=== PATIENT | male | born 1940 | race Caucasian/White ===

== ENCOUNTER 2017-06-21 08:33 | Emergency (ER) | payer MEDICARE, BC, OTHER ==
[~2017-06-21] VITALS: Ht 175.3 cm; Wt 82.7 kg
[2017-06-21] MEDS ORDERED: HYDR12CA PO (09:09)
[2017-06-21] MEDS ORDERED: BENI1TAB PO (09:09)
[2017-06-21] MEDS ORDERED: ASPI1TAB PO (09:09)
[2017-06-21] MEDS ORDERED: NS 1,000 ML IV SCH (09:34)
[2017-06-21] MEDS ORDERED: NS 500 ML IV ONE ×3 (09:45→12:00)
--- NOTE | 2017-06-21 09:58 | REP ---
CT Head without contrast HISTORY: Weakness COMPARISON: None Areas of decreased attenuation are present in the periventricular white matter. This represents small-vessel ischemic disease. There is no intraparenchymal hemorrhage, acute infarct, mass or midline shift. The ventricular system and cortical sulci are dilated consistent with minimal volume loss. There is no extra cerebral collection. There is no fracture. The visualized sinuses are clear. IMPRESSION: 1. Small vessel ischemic disease. 2. Minimal volume loss. Signed by Oz Pratt MD 06/21/2017 09:50 A
--- NOTE | 2017-06-21 10:04 | REP ---
Chest two views HISTORY: Cough Comparison: 02/20/2013 Linear density is present in the right lower lobe consistent with scar. The left lung is clear. The heart is normal in size. The pulmonary vasculature is normal in appearance. The bony structure is intact. IMPRESSION: No acute disease. Signed by Oz Pratt MD 06/21/2017 09:56 A
[2017-06-21 10:42] LABS: MEAN CORPUSCULAR HEMOGLOBIN 29.5 pg (27.0-33.0); MEAN CORPUSCULAR HGB CONC 33.3 g/dl (32.0-36.5); MEAN CORPUSCULAR VOLUME 88.6 fl (80.0-96.0); PLATELET COUNT, AUTOMATED 180 10^3/uL (150-450); RED CELL DISTRIBUTION WIDTH 12.2 % (11.5-14.5); VENOUS BASE EXCESS -0.2 (-2.0-2.0); VENOUS PARTIAL PRESSURE CO2 47.1 mmHg (38.0-50.0); VENOUS PARTIAL PRESSURE O2 24.2 mmHg (30.0-50.0); VENOUS TOTAL CO2 27.3 MEQ/L (24.0-28.0); WHITE BLOOD COUNT 16.6 10^3/uL (4.0-10.0)
[2017-06-21 10:43] LABS: VENOUS O2 SATURATION 46.6 % (60.0-80.0)
[2017-06-21 10:51] LABS: ADD MANUAL DIFFER YES; DIFF SLIDE NUMBER 165
[2017-06-21 11:03] LABS: BANDS 2 % (< 11); BASOPHILS 1 % (0-4)
[2017-06-21 11:04] LABS: POIKILOCYTOSIS 1+
[2017-06-21 11:10] LABS: ALBUMIN 3.8 GM/DL (3.2-5.2); ALBUMIN/GLOBULIN RATIO 1.06 (1.00-1.93); ALKALINE PHOSPHATASE 65 U/L (45-117); ALT/SGPT 18 U/L (12-78); ANION GAP 6 MEQ/L (8-16); AST/SGOT 10 U/L (15-37); BILIRUBIN,DIRECT 0.3 MG/DL (0.0-0.2); BILIRUBIN,TOTAL 1.2 MG/DL (0.2-1.0); BLOOD UREA NITROGEN 26 MG/DL (7-18); CALCIUM LEVEL 8.6 MG/DL (8.8-10.2); CARBON DIOXIDE LEVEL 30 MEQ/L (21-32); CHLORIDE LEVEL 100 MEQ/L (98-107); CREATININE FOR GFR 1.66 MG/DL (0.70-1.30); GLOMERULAR FILTRATION RATE 43.2 (>42); GLUCOSE, FASTING 100 MG/DL (83-110); POTASSIUM SERUM 3.9 MEQ/L (3.5-5.1); SODIUM LEVEL 136 MEQ/L (136-145); TOTAL PROTEIN 7.4 GM/DL (6.4-8.2)
[2017-06-21 11:23] LABS: OSMOLALITY SERUM 293 MOSM/KG (280-301)
[2017-06-21 11:24] LABS: ERYTHROCYTE SEDIMENTATION RATE 26 mm/hr (0-20)
[2017-06-21] MEDS ORDERED: cefTRIAXone SOD 1 GM in D5W 50 ML IV ONE (12:30)
--- NOTE | 2017-06-21 14:06 | REP ---
CT ABDOMEN PELVIS WITHOUT IV OR ORAL CONTRAST: Renal stone protocol. HISTORY: UTI. Pain. No comparison CT study. CT FINDINGS: Preliminary digital associate teacher radiograph is unremarkable. The lung bases show linear discoid atelectasis in the lower lobes bilaterally and in the lingular segment of the left upper lobe and right middle lobe. This is moderate. No pleural effusion is seen. The liver and spleen are normal in size and homogeneous in texture. There is an accessory splenule. No gallbladder abnormality is seen. No pancreatic abnormality is observed. Normal adrenal glands are seen bilaterally. Normal caliber aorta is noted. No intrarenal calculus mass or cyst is seen. No hydronephrosis is seen on either side. The prostate gland is somewhat enlarged and contains one or two dystrophic calcifications. Urinary bladder is intact. Small and large intestinal bowel loops are unremarkable. Normal appendix is seen. No abdominal wall defect is observed. No bony destructive lesion is seen. IMPRESSION: Somewhat enlarged prostate. No other significant abdominal or pelvic abnormality. Bibasilar pulmonary parenchymal discoid atelectasis. Signed by Fernandez Gallagher MD 06/21/2017 03:15 P
[2017-06-21] MEDS ORDERED: CIPR-249 PO ×2 (14:25→14:26)
[2017-06-21 14:29] VITALS: BP 126/60
[2017-06-22] MEDS ORDERED: CIPR250T3 PO (16:54)
--- NOTE | 2017-06-24 05:59 | ECGEPIP ---
Stationary ECG Study [facility] - ED Test Date: 2017-06-21 Pat Name: DAYNE JACKSON Department: Room: - Gender: M Pediatric Hospitalist: galo : 1940 Requested By: Hilda Mccartney Order Number: [id number] Reading MD: Jean-Pierre Latham Measurements Intervals [place] Rate: 75 P: 27 MA: 163 QRS: -36 QRSD: 141 T: 79 QT: 387 QTc: 433 Interpretive Statements SINUS RHYTHM LEFT AXIS DEVIATION LEFT BUNDLE BRANCH BLOCK SIMILAR TO 07/10/13 Electronically Signed On 06-24-2017 5:59:32 EDT by Jean-Pierre Latham
[2017-06-24] MEDS ORDERED: CIPR500T3 PO (13:08)
[2017-06-24] MEDS ORDERED: FLOM5CAP PO (13:09)
== END 2017-06-21 14:46 | disposition home or self-care (01) ==
LOC: M ED 08:33
DX: N39.0 Urinary tract infection, site not specified (principal); I10 Essential (primary) hypertension; Z88.1 Allergy status to other antibiotic agents; Z87.891 Personal history of nicotine dependence; Z79.82 Long term (current) use of aspirin; Z79.899 Other long term (current) drug therapy
CPT/HCPCS: 70450; 71020; 74176; 80048; 80076; 81001; 82140; 82550; 82553; 82803; 83605; 83930; 84443; 84484; 85025; 85652; 87040; 87086; 93005; 93041; 96374; 99285; J0696

== ENCOUNTER → 2017-07-12 | Outpatient (REF) | payer MEDICARE, OTHER ==
[~2017-07-12] MED LIST: ASPI1TAB PO; BENI1TAB PO; CIPR-249 PO; CIPR250T3 PO; CIPR500T3 PO; FLOM5CAP PO; HYDR12CA PO
== END ==
LOC: M SMT 12:56
PROVIDERS: ATTEND Nurse Practitioner Family
DX: R31.29 Other microscopic hematuria (principal); N41.9 Inflammatory disease of prostate, unspecified
CPT/HCPCS: 51798; 81001; 87086; G0463

== ENCOUNTER → 2017-07-24 | Outpatient (REF) | payer MEDICARE, OTHER ==
[2017-07-24 14:22] LABS: CALCIUM LEVEL 8.7 MG/DL (8.8-10.2); CREATININE FOR GFR 1.54 MG/DL (0.70-1.30); GLOMERULAR FILTRATION RATE 47.1 (>42); POTASSIUM SERUM 4.4 MEQ/L (3.5-5.1)
== END ==
LOC: M LAB REF 13:34 → M LABDRAW1 13:34
PROVIDERS: ATTEND Family Medicine
DX: I10 Essential (primary) hypertension (principal)

== ENCOUNTER → 2017-09-30 | Outpatient (REF) | payer MEDICARE, OTHER ==
[2017-09-30 13:43] LABS: ANION GAP 5 MEQ/L (8-16); BLOOD UREA NITROGEN 40 MG/DL (7-18); CALCIUM LEVEL 8.5 MG/DL (8.8-10.2); CARBON DIOXIDE LEVEL 30 MEQ/L (21-32); CHLORIDE LEVEL 105 MEQ/L (98-107); GLOMERULAR FILTRATION RATE 48.6 (>42); GLUCOSE, FASTING 89 MG/DL (70-100); POTASSIUM SERUM 4.4 MEQ/L (3.5-5.1); SODIUM LEVEL 140 MEQ/L (136-145)
== END ==
LOC: M LABDRAW1 11:55
DX: I10 Essential (primary) hypertension (principal)
CPT/HCPCS: 80048

== ENCOUNTER 2018-01-04 16:32 | Emergency (ER) | payer MEDICARE, BC, OTHER ==
[2018-01-04 17:35] LABS: HEMATOCRIT 43.9 % (42.0-52.0); HEMOGLOBIN 14.5 g/dl (13.5-17.5); MEAN CORPUSCULAR HEMOGLOBIN 29.5 pg (27.0-33.0); MEAN CORPUSCULAR VOLUME 89.2 fl (80.0-96.0); PLATELET COUNT, AUTOMATED 226 10^3/uL (150-450); RED BLOOD COUNT 4.92 10^6/uL (4.30-6.10); RED CELL DISTRIBUTION WIDTH 12.5 % (11.5-14.5); WHITE BLOOD COUNT 8.3 10^3/uL (4.0-10.0)
[2018-01-04 17:49] LABS: INR 1.07
[2018-01-04 18:16] LABS: ALBUMIN 4.1 GM/DL (3.2-5.2); ALKALINE PHOSPHATASE 65 U/L (45-117); ALT/SGPT 23 U/L (12-78); AMYLASE 64 U/L (25-115); ANION GAP 4 MEQ/L (8-16); AST/SGOT 17 U/L (7-37); BILIRUBIN,DIRECT 0.1 MG/DL (0.0-0.2); BILIRUBIN,TOTAL 0.3 MG/DL (0.2-1.0); BLOOD UREA NITROGEN 37 MG/DL (7-18); CALCIUM LEVEL 8.6 MG/DL (8.8-10.2); CARBON DIOXIDE LEVEL 28 MEQ/L (21-32); CHLORIDE LEVEL 110 MEQ/L (98-107); CPK CREATINE PHOSPHOKINASE 99 U/L (39-308); CREATININE FOR GFR 1.47 MG/DL (0.70-1.30); GLOMERULAR FILTRATION RATE 49.6 (>42); GLUCOSE, FASTING 107 MG/DL (70-100); LIPASE 120 U/L (73-393); POTASSIUM SERUM 4.1 MEQ/L (3.5-5.1); SODIUM LEVEL 142 MEQ/L (136-145); TOTAL PROTEIN 8.2 GM/DL (6.4-8.2); TROPONIN I < 0.02 NG/ML (< 0.10)
[2018-01-04 18:17] LABS: CK-MB VALUE MASS 1.9 NG/ML (<3.6); MB/CK RELATIVE INDEX 1.91 (< OR =4)
[2018-01-04] MEDS ORDERED: ISOVUE-370 76% 100ML VIAL (Q9967) As Ordered (18:27)
[2018-01-04] MEDS: GABAPENTIN 300 MG CAP PO (19:59)
== END 2018-01-04 19:59 | disposition home or self-care (01) ==
LOC: M ED 16:32
DX: R07.89 Other chest pain (principal); I44.7 Left bundle-branch block, unspecified; Z88.1 Allergy status to other antibiotic agents; Z79.82 Long term (current) use of aspirin; Z79.899 Other long term (current) drug therapy; Z87.438 Personal history of other diseases of male genital organs
CPT/HCPCS: Q9967

== ENCOUNTER → 2018-07-07 | Outpatient (REF) | payer MEDICARE, OTHER ==
[2018-07-07 13:16] LABS: ANION GAP 8 MEQ/L (8-16); BLOOD UREA NITROGEN 41 MG/DL (7-18); CALCIUM LEVEL 8.7 MG/DL (8.8-10.2); CARBON DIOXIDE LEVEL 27 MEQ/L (21-32); CHLORIDE LEVEL 106 MEQ/L (98-107); CREATININE FOR GFR 1.74 MG/DL (0.70-1.30); FREE T4 0.86 NG/DL (0.76-1.46); GLOMERULAR FILTRATION RATE 40.8 (>42); GLUCOSE, FASTING 95 MG/DL (70-100); POTASSIUM SERUM 3.8 MEQ/L (3.5-5.1); SODIUM LEVEL 141 MEQ/L (136-145)
[2018-07-07 13:21] LABS: BASO # 0.1 10^3/uL (0.0-0.2); BASO % 0.7 % (0.0-1.0); EOS # 0.3 10^3/uL (0.0-0.50); EOS % 4.4 % (0.0-3.0); HEMATOCRIT 44.3 % (42.0-52.0); HEMOGLOBIN 14.6 g/dl (13.5-17.5); IMMATURE GRANULOCYTE % 0.4 % (0-3.0); LYMPH # 2.1 10^3/uL (1.5-4.5); LYMPH % 29.4 % (24.0-44.0); MEAN CORPUSCULAR HEMOGLOBIN 30.2 pg (27.0-33.0); MEAN CORPUSCULAR VOLUME 91.7 fl (80.0-96.0); MONO # 0.7 10^3/uL (0.0-0.8); MONO % 9.2 % (0.0-5.0); NEUTROPHILS # 3.9 10^3/uL (1.8-7.7); NEUTROPHILS % 55.9 % (36.0-66.0); PLATELET COUNT, AUTOMATED 171 10^3/uL (150-450); RED BLOOD COUNT 4.83 10^6/uL (4.30-6.10); RED CELL DISTRIBUTION WIDTH 12.3 % (11.5-14.5)
== END ==
LOC: M LABDRAW1 11:52
DX: N41.0 Acute prostatitis (principal); R53.83 Other fatigue
CPT/HCPCS: 84443

== ENCOUNTER → 2018-12-15 | Outpatient (REF) | payer MEDICARE, OTHER ==
[~2018-12-15] MED LIST changes: -ASPI1TAB PO; +ASPI81TA26 PO; -BENI1TAB PO; +BENI1TAB3 PO; +FLOM0.4C39 PO; -FLOM5CAP PO; +GABA-843 PO
[2018-12-15 11:11] LABS: BASO # 0.1 10^3/uL (0.0-0.2); BASO % 0.9 % (0.0-1.0); EOS # 0.3 10^3/uL (0.0-0.50); HEMATOCRIT 44.7 % (42.0-52.0); HEMOGLOBIN 14.4 g/dl (13.5-17.5); LYMPH # 1.9 10^3/uL (1.5-4.5); LYMPH % 28.7 % (24.0-44.0); MEAN CORPUSCULAR HEMOGLOBIN 29.4 pg (27.0-33.0); MEAN CORPUSCULAR HGB CONC 32.2 g/dl (32.0-36.5); MEAN CORPUSCULAR VOLUME 91.2 fl (80.0-96.0); MONO # 0.6 10^3/uL (0.0-0.8); MONO % 9.6 % (0.0-5.0); NEUTROPHILS # 3.7 10^3/uL (1.8-7.7); NEUTROPHILS % 55.3 % (36.0-66.0); PLATELET COUNT, AUTOMATED 196 10^3/uL (150-450); WHITE BLOOD COUNT 6.7 10^3/uL (4.0-10.0)
[2018-12-15 11:35] LABS: ALBUMIN 3.9 GM/DL (3.2-5.2); BILIRUBIN,TOTAL 0.6 MG/DL (0.2-1.0); CHOLESTEROL RISK RATIO 3.547 (<5); CREATININE FOR GFR 1.53 MG/DL (0.70-1.30); GLOMERULAR FILTRATION RATE 47.3 (>42); POTASSIUM SERUM 4.4 MEQ/L (3.5-5.1)
== END ==
LOC: M LABDRAW1 10:43
PROVIDERS: ATTEND Family Medicine
DX: I10 Essential (primary) hypertension (principal)

== ENCOUNTER 2019-01-17 16:17 | Emergency (ER) | payer MEDICARE, BC, OTHER ==
[~2019-01-17] VITALS: Ht 175.3 cm; Wt 86.4 kg
[2019-01-17 16:43] LABS: BASO # 0.1 10^3/uL (0.0-0.2); BASO % 0.6 % (0.0-1.0); EOS # 0.1 10^3/uL (0.0-0.50); EOS % 1.4 % (0.0-3.0); HEMATOCRIT 44.5 % (42.0-52.0); HEMOGLOBIN 14.6 g/dl (13.5-17.5); LYMPH # 1.7 10^3/uL (1.5-4.5); LYMPH % 19.6 % (24.0-44.0); MEAN CORPUSCULAR HEMOGLOBIN 29.8 pg (27.0-33.0); MEAN CORPUSCULAR HGB CONC 32.8 g/dl (32.0-36.5); MEAN CORPUSCULAR VOLUME 90.8 fl (80.0-96.0); MONO # 0.7 10^3/uL (0.0-0.8); MONO % 7.6 % (0.0-5.0); NEUTROPHILS # 6.2 10^3/uL (1.8-7.7); NEUTROPHILS % 70.5 % (36.0-66.0); PLATELET COUNT, AUTOMATED 231 10^3/uL (150-450); WHITE BLOOD COUNT 8.7 10^3/uL (4.0-10.0)
[2019-01-17] MEDS: MORPHINE 4 MG/ML 1ML VIAL/SYRINGE (J2270) IV PRN ×2 (16:53→18:02)
[2019-01-17] MEDS ORDERED: ONDANSETRON 4MG/2ML VIAL (J2405) IV ONE (17:00)
[2019-01-17 17:15] LABS: BLOOD UREA NITROGEN 42 MG/DL (7-18); CALCIUM LEVEL 8.4 MG/DL (8.8-10.2); CARBON DIOXIDE LEVEL 25 MEQ/L (21-32); CHLORIDE LEVEL 107 MEQ/L (98-107); CPK CREATINE PHOSPHOKINASE 115 U/L (39-308); CREATININE FOR GFR 1.73 MG/DL (0.70-1.30); GLUCOSE, FASTING 94 MG/DL (70-100); MB/CK RELATIVE INDEX 1.83 (< OR =4); POTASSIUM SERUM 3.9 MEQ/L (3.5-5.1); SODIUM LEVEL 141 MEQ/L (136-145); TROPONIN I < 0.02 NG/ML (< 0.10)
--- NOTE | 2019-01-17 17:22 | ECGEPIP ---
Stationary ECG Study [facility] - ED Test Date: 2019-01-17 Pat Name: DAYNE JACKSON Department: Room: - Gender: M Limb Driver: TC : 1940 Requested By: Jean-Pierre Dangelo Order Number: [id number] Reading MD: Jean-Pierre Latham Measurements Intervals [place] Rate: 80 P: 30 MN: 161 QRS: -29 QRSD: 156 T: 96 QT: 402 QTc: 466 Interpretive Statements SINUS RHYTHM LEFT BUNDLE BRANCH BLOCK SIMILAR TO 01/04/18 Electronically Signed On 01-17-2019 17:21:58 EDT by Jean-Pierre Latham
[2019-01-17] MEDS ORDERED: HYDR-3713 PO (17:54)
[2019-01-17 18:19] VITALS: BP 141/70
--- NOTE | 2019-01-18 07:59 | REP ---
RIGHT TIB-FIB SERIES: FOUR VIEWS. HISTORY: Pain and swelling. FINDINGS: Right tibia and fibula views demonstrate normal bones, joints, and soft tissues. No fracture or subluxation is seen. IMPRESSION: Negative right calf radiographs. Electronically Signed by Fernandez Gallagher MD 01/18/2019 09:19 A
--- NOTE | 2019-01-18 08:00 | REP ---
RIGHT KNEE RADIOGRAPHS: FOUR VIEWS. HISTORY: Pain and swelling after fall. FINDINGS: Four views of the right knee are presented. No sunrise view is seen. There is mild soft tissue swelling anteriorly in the prepatellar soft tissues. Minimal patellar spurring is seen. No fractures noted. IMPRESSION: No fracture noted. Electronically Signed by Fernandez Gallagher MD 01/18/2019 09:20 A
== END 2019-01-17 18:41 | disposition home or self-care (01) ==
LOC: M ED 16:17
DX: S80.11XA Contusion of right lower leg, initial encounter (principal); R55 Syncope and collapse; W01.198A Fall on same level from slipping, tripping and stumbling with subsequent striking against other object, initial encounter; Y92.89 Other specified places as the place of occurrence of the external cause; I44.7 Left bundle-branch block, unspecified; I10 Essential (primary) hypertension; Z87.891 Personal history of nicotine dependence; Z88.1 Allergy status to other antibiotic agents; Z79.899 Other long term (current) drug therapy; Z79.82 Long term (current) use of aspirin
CPT/HCPCS: 73564; 73590; 80048; 82550; 82553; 84443; 84484; 85025; 93005; 93041; 94760; 96374; 96375; 96376; 99285; J2270; J2405

== ENCOUNTER 2019-07-21 16:33 | Inpatient (IN) | payer MEDICARE, BC, OTHER ==
[~2019-07-21] VITALS: Ht 175.3 cm; Wt 88.8 kg
[~2019-07-21 16:33] MED LIST changes: +HYDR-3713 PO
[2019-07-21 17:00] LABS: BASO # 0.1 10^3/uL (0.0-0.2); BASO % 0.9 % (0.0-1.0); EOS # 0.3 10^3/uL (0.0-0.5); EOS % 3.3 % (0.0-3.0); HEMATOCRIT 45.1 % (42.0-52.0); HEMOGLOBIN 14.3 g/dl (13.5-17.5); LYMPH # 2.4 10^3/uL (1.5-5.0); LYMPH % 29.6 % (24.0-44.0); MEAN CORPUSCULAR HEMOGLOBIN 29.5 pg (27.0-33.0); MEAN CORPUSCULAR HGB CONC 31.7 g/dl (32.0-36.5); MEAN CORPUSCULAR VOLUME 93.2 fl (80.0-96.0); MONO # 0.8 10^3/uL (0.0-0.8); MONO % 9.5 % (0.0-5.0); NEUTROPHILS # 4.6 10^3/uL (1.5-8.5); NEUTROPHILS % 56.2 % (36.0-66.0); PLATELET COUNT, AUTOMATED 205 10^3/uL (150-450); RED BLOOD COUNT 4.84 10^6/uL (4.30-6.10); WHITE BLOOD COUNT 8.1 10^3/uL (4.0-10.0)
[2019-07-21] MEDS ORDERED: NS 500 ML IV ONE (17:00)
[2019-07-21] MEDS ORDERED: LOSA50TA88 PO (17:07)
[2019-07-21 17:12] LABS: INR 1.16; PROTHROMBIN TIME 14.5 SECONDS (11.8-14.0)
[2019-07-21 17:13] LABS: PARTIAL THROMBOPLASTIN TIME 33.2 SECONDS (25.0-38.4)
[2019-07-21 17:38] LABS: ALBUMIN 3.7 GM/DL (3.2-5.2); ALT/SGPT 24 U/L (12-78); BILIRUBIN,DIRECT < 0.1 MG/DL (0.0-0.2); BILIRUBIN,TOTAL 0.3 MG/DL (0.2-1.0); BLOOD UREA NITROGEN 40 MG/DL (7-18); CALCIUM LEVEL 8.8 MG/DL (8.8-10.2); CARBON DIOXIDE LEVEL 27 MEQ/L (21-32); CHLORIDE LEVEL 112 MEQ/L (98-107); CK-MB VALUE MASS 2.1 NG/ML (<3.6); CPK CREATINE PHOSPHOKINASE 94 U/L (39-308); CREATININE FOR GFR 1.63 MG/DL (0.70-1.30); FREE T4 0.88 NG/DL (0.76-1.46); GLOMERULAR FILTRATION RATE 43.9 (>42); GLUCOSE, FASTING 99 MG/DL (70-100); LIPASE 92 U/L (73-393); MB/CK RELATIVE INDEX 2.23 (< OR =4); NT-PRO BNP 308 PG/ML (<450); POTASSIUM SERUM 5.1 MEQ/L (3.5-5.1); SODIUM LEVEL 142 MEQ/L (136-145); TOTAL PROTEIN 7.1 GM/DL (6.4-8.2); TROPONIN I < 0.02 NG/ML (< 0.10)
--- NOTE | 2019-07-21 17:40 | REP ---
Chest x-ray: Single view. History: Chest pain. Comparison chest x-ray: June 21, 2017. Findings: There is plate-like atelectasis in the right base. Lung fernandez are otherwise clear. Pleural angles are sharp. Heart is mildly prominent. Pulmonary vasculature is not increased. The thoracic aorta is somewhat tortuous. Impression: Plate-like atelectasis right base. Mild cardiomegaly. Otherwise no acute disease. Electronically Signed by Fernandez Gallagher MD 07/21/2019 05:31 P
[2019-07-21] MEDS ORDERED: NS 1,000 ML IV SCH (18:06)
--- NOTE | 2019-07-21 20:36 | HPE ---
DATE OF ADMISSION: 07/21/2019 REASON FOR ADMISSION: Complete heart block. CHIEF COMPLAINT: Passed out. HISTORY OF PRESENT ILLNESS: Mr. Shaheen Roberts is a pleasant 78-year-old man with previous documentation of left bundle branch block (ECG 01/17/2019). He has a history of recurrent syncope. He reports an episode of syncope September 2018 and January 2019. When he lost consciousness January 2019, he sustained injury to his right lower extremity, including a fracture of the right femur. Today, at 4:15 p.m., he was bending over, putting away some garbage, when he suddenly lost consciousness. He did not have any prodrome with any nausea or vomiting or palpitations. He says the loss of consciousness have all been brief, with rapid return of sensorium. He did not injure himself today. Emergency Medical Services (EMS) found him to be in complete heart block and he was in complete heart block with ventricular in the 20s in the emergency room. Out in the field, he received some atropine intravenous (IV). Since receiving atropine, he reports he has had a dry mouth. No chest pain, pressure, squeezing, heaviness, or tightness with or without exertion. No exertional dyspnea. No orthopnea or paroxysmal nocturnal dyspnea (PND). No leg or ankle swelling. No palpitations. No embolic events. No intermittent claudication. OTHER PAST MEDICAL AND SURGICAL HISTORY: Systemic hypertension. No hypercholesterolemia. No diabetes. No coronary disease. No prior myocardial infarction. No atrial fibrillation. No heart failure. Right femur fracture January 2019. Previous removal of a lipoma over the right lateral chest with subsequent development of chronic neuropathic pain. ADVERSE DRUG REACTIONS: None. MEDICATIONS PRIOR TO ADMISSION: - losartan 50 mg twice a day - hydrochlorothiazide 12.5 mg as needed for elevated blood pressure (none for the past five days) FAMILY HISTORY: Nine brothers and sisters, all . Some of his brothers and sisters have had chronic obstructive pulmonary disease (COPD), abdominal aortic aneurysm and his oldest brother had cancer. SOCIAL HISTORY: He just recently retired as a [employer]. 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 No alcohol. He quit smoking 40 years ago. No illegal drugs. . REVIEW OF SYSTEMS: Neuropathic pain, right lateral chest wall region. Other review of systems as per history of present illness (HPI) above. No anxiety, panic attacks or depression. All other 10-point review of systems is negative. PHYSICAL EXAMINATION: A pleasant man who appears his chronological age, who is not in any respiratory or psychologic distress. Height 69 inches, weight 88.8 kg, body mass index (BMI) 28.9. Pulse 22 (regular, complete heart block on bedside monitor), blood pressure 111/55, respiratory rate 20, temperature 97.2, oxygen saturation 99% on room air. He appears overweight. No conjunctival pallor, scleral icterus, or xanthomas. Multiple missing teeth. Some dental fillings present. Oral mucosa was moist and without pallor or cyanosis. Jugular venous pulsations were at 5 cm with occasional A waves. Trachea midline. No palpable thyroid. No clubbing of the nail beds, cyanosis, or splinter hemorrhages. No skin lesions, skin pallor, or icterus. Oriented to person, place, and time. Mood and affect normal. Curvature of spine normal. Gait not appropriately tested at this time as the patient is on bed rest with complete heart block with a slow heart rate and had syncope earlier today. Gross motor strength and tone normal. No abnormal muscle atrophy, fasciculations, or tremors Respiratory expansion and effort was good. No crackles or wheezes. No dullness to percussion. No palpable apex beat. No left parasternal lifts, heaves, thrills, or palpable heart sounds. First heart sound was variable in intensity. S2 was normal. No S3 or S4 or murmurs. Carotids are normal in volume and contour and without bruits. No palpable abdominal aorta. No abdominal bruits. Femoral pulse is normal. Pedal pulse is normal. No plus edema in the legs. Abdomen was, soft, nontender with normal bowel sounds. No hepatosplenomegaly or other organomegaly. Liver span 12 cm in the midclavicular line Stool for occult blood not presently indicated. Electrocardiogram 07/21/2019 at 1645 hours shows sinus tachycardia with complete heart block with right bundle branch block and secondary as well as nonspecific ST-T abnormalities. LABORATORY: Laboratory work 07/21/2019 shows: WBC 8.1, hemoglobin 14.2, hematocrit 45.1, platelets 205. PT/INR 1.16. PTT 33.2. Sodium 142, potassium 5.1, chloride 112, BUN 40, creatinine 1.63, estimated GFR 43.9, glucose 99. NT-proBNP 308. Troponin-I less than 0.02. CPK 94, CK-MB 2.1. TSH 1.650, Free T4 0.88. Albumin 3.7, total protein 7.1. I have independently visualized the patient's portable AP sitting chest x-ray acquired 07/21/2019 at 5:09 p.m. Cardiac size probably normal for portable technique. No pulmonary vascular redistribution. No interstitial or alveolar edema. Pleural angles sharp. Vasculature appears tortuous. Platelike atelectasis right base. ASSESSMENT AND PLAN: 1. Complete heart block. Patient is symptomatic with complete heart block with recurrent syncope. He has a preexisting left bundle branch block documented. Today, he has got a right bundle branch block and a complete heart block. Therefore, alternating bundle branch block. He will require a permanent dual chamber pacemaker. Implantation of dual chamber pacemaker was discussed with the patient and his . Risks of pacemaker implantation were explained to the patient including, but not all inclusive, infection (1%), pneumothorax (1%), bleeding, stroke reaction, cardiac dysrhythmias, and cardiac perforation with cardiac tamponade (3 per 1000). Patient is agreeable and signed a consent form. The patient reported eating a few nibbles of chicken at 3:30 today and ate a full lunch at 12:30 today. The plan will be to proceed to the operating room around 9:30 p.m. [facility] to undergo implantation of a permanent dual chamber pacemaker. 2. Right bundle branch block. Right bundle branch block on ECG today. Previously, he had a left bundle branch block. He has a complete heart block. As noted above, he will undergo implantation of a permanent dual chamber pacemaker. 3. Left bundle branch block. He has had a previous documentation of left bundle branch block. Today, he has got right bundle branch block with complete heart block. As mentioned above, he will undergo implantation of a permanent dual chamber pacemaker. 4. Recurrent syncope. Syncope has now been documented to be the consequence of complete heart block. As mentioned above, he will undergo implantation of a permanent dual chamber pacemaker. 5. Systemic hypertension. Blood pressure presently controlled. Once he has a pacemaker implanted, I will be in a better position to burner operator his antihypertensive medications. Until he has a permanent pacemaker, I will hold his antihypertensive medications.
[2019-07-21] MEDS ORDERED: ceFAZolin SOD 2 GM in IV 1 EA IV ONE (21:00)
[2019-07-21] MEDS ORDERED: LIDOCAINE 1% SDV INJ 30 ML VIAL As Ordered ONE (21:18)
[2019-07-21] MEDS ORDERED: MUPIROCIN 2% OINT 22 GM TUBE As Ordered ONE (21:18)
[2019-07-21] MEDS ORDERED: VANCOMYCIN HCL 500 MG/10 ML VIAL (J3370) As Ordered ONE ×2 (21:19→21:21)
[2019-07-21] MEDS ORDERED: ISOVUE-300 61% 50ML VIAL (Q9967) As Ordered ONE (21:19)
[2019-07-21] MEDS ORDERED: ACETAMINOPHEN 325 MG TAB PO PRN (21:45)
[2019-07-21] MEDS ORDERED: ceFAZolin 1GM INJ (J0690 PER 500MG) As Ordered ONE (22:26)
[2019-07-21] MEDS ORDERED: LIDOCAINE 2% INJ 100 MG/5 ML SDV (FOR ANES.) As Ordered ONE (22:49)
[2019-07-21] MEDS ORDERED: fentaNYL 100 MCG/2 ML INJECTION (J3010) As Ordered ONE (22:49)
[2019-07-21] MEDS ORDERED: ePHEDrine SULFATE 25 MG/5 ML(5MG/ML) SYRINGE As Ordered ONE (22:49)
[2019-07-21] MEDS ORDERED: PROPOFOL 200 MG/20 ML VIAL As Ordered ONE ×2 (22:49→23:25)
[2019-07-21] MEDS ORDERED: ONDANSETRON 4MG/2ML VIAL (J2405) As Ordered ONE (23:27)
[2019-07-21] MEDS ORDERED: dexameTHASONE 4 MG/ML 1ML VIAL (J1100) As Ordered ONE (23:27)
--- NOTE | 2019-07-21 23:28 | ECGEPIP ---
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
[2019-07-22] MEDS ORDERED: fentaNYL 100 MCG/2 ML INJECTION (J3010) IV PRN (00:15)
[2019-07-22] MEDS ORDERED: ONDANSETRON 4MG/2ML VIAL (J2405) IV PRN (00:15)
[2019-07-22] MEDS ORDERED: LR 1,000 ML IV SCH (00:15)
[2019-07-22 00:40] VITALS: BP 134/73
[2019-07-22] MEDS ORDERED: PREVNAR 13 VACCINE SYRINGE (CPT CODE:90670) IM SCH (02:00)
[2019-07-22 04:00] VITALS: BP 136/62
[2019-07-22 05:43] LABS: CALCIUM LEVEL 8.1 MG/DL (8.8-10.2); CREATININE FOR GFR 1.31 MG/DL (0.70-1.30); GLOMERULAR FILTRATION RATE 56.5 (>42); POTASSIUM SERUM 4.4 MEQ/L (3.5-5.1)
--- NOTE | 2019-07-22 06:21 | ECGEPIP ---
[facility] Test Date: 2019-07-22 Pat Name: DAYNE JACKSON Department: Room: [place] [address] Gender: Male Co Founder And Ceo: SANDOR : 1940 Requested By: Rj Fu Order Number: [id number] Reading MD: Dagmar Beltre Measurements Intervals [place] Rate: 69 P: 229 [place]: 197 QRS: -17 QRSD: 148 T: 71 QT: 408 QTc: 440 Interpretive Statements ELECTRONIC ATRIAL PACEMAKER NEW C/W 07/21/19 1ST DEGREE BLOCK NEW LEFT BUNDLE BRANCH BLOCK Electronically Signed on 07-22-2019 6:21:25 EST by Dagmar Beltre
--- NOTE | 2019-07-22 06:44 | RO ---
DATE OF PROCEDURE: 07/21/2019 PREOPERATIVE DIAGNOSIS: Complete heart block. POSTOPERATIVE DIAGNOSIS: Complete heart block. FINDINGS: Complete heart block. PROCEDURE PERFORMED: Implantation of a permanent dual chamber pacemaker ([employer]ab). SURGEON: Rj Fu MD POST PARTUM NURSE: None. ANESTHESIA: Lidocaine 1% local/monitored anesthetic care. ESTIMATED BLOOD LOSS: Less than 20 mL. No blood products replaced. No biopsies. No drains. No complications. PROCEDURE DESCRIPTION: The patient was prepped and draped over the left pectoral region and 3M Ioban film was applied. Lidocaine 1% was used for local anesthetic. Under fluoroscopic guidance, using the first rib as an anatomic landmark, I was successful at percutaneous vein access of the extra thoracic portion of the left subclavian vein using a micropuncture needle. This was guidewire exchanged for one of the guidewires that came with one of the 7 Indonesian sheaths. This was then guidewire exchanged for one of the guidewires from the 7 Indonesian sheath. Next, an incision approximately 2.5 to 3 inches in length was made with a Peak Plasma blade 1 cm below the skin entry site of the guidewire. The Peak Plasma blade was used to get through the fatty layer and through the fibrous Joselyn fascia. Next, the pacemaker pocket was formed in a caudal direction using blunt dissection using two fingers. Next, the guidewire was pulled through the skin into the incision site. Next, I used the micropuncture kit to obtain a separate venous access more lateral to the first guidewire at the level of the pectoral muscle using the first guidewire as a fluoroscopic marker. This was then guidewire exchanged for a guidewire that came with the other 7 Indonesian sheath. Next, I placed a 7 Indonesian sheath over the more lateral of the guidewires and this was used for vein access for the right ventricle lead. The right ventricle was placed under fluoroscopic guidance in the vicinity of the right ventricle apex where it was secured with a total of 8 turns. This position was found to be electrically and anatomically satisfactory. The sheath was then broken apart and removed and the pectoral lead was secured to the pectoral muscle using two individual sutures consisting of #0 Ethibond to secure it to the pectoral muscle. Next, another 7 Indonesian sheath was placed over the guidewire that was placed medially from before. This sheath was used for vein access for the right atrial lead. The right atrial was placed under fluoroscopic guidance into the right atrial appendage position and was secured with a total of 14 turns. This position was found to be electrically and anatomically satisfactory. The sheath was broken apart and the atrial lead was secured to the pectoral muscle using the supplied tie down sleeve using two individual sutures consisting of #0 Ethibond. Another #0 Ethibond suture was then used to serve as the tie down for the pacemaker pulse generator by securing it to the pectoral muscle. Next, the terminal pins of the ventricular and atrial leads were placed into their respective ports in the header of the pacemaker pulse generator and each one was secured by tightening the set screws with the hex screwdriver. The excess lead material was then coiled underneath the pacemaker pulse generator and placed along with the pacemaker pulse generator into the pacemaker pocket with the excess lead material below and the pacemaker pulse generator on top. The pulse generator was then secured to the pectoral muscle using the previously placed #0 Ethibond suture. The deep layer was then closed using individual sutures consisting of #2-0 Vicryl. Some additional #3-0 Vicryl sutures were used to help approximate the more superficial layer. The skin was then closed using michael. The patient tolerated the procedure well without any immediate complications. The pacemaker pulse generator implanted was a [employer] Assurity MRI, model [id number] with serial number [id number]. The right atrial lead implanted was a [employer] Tendril MRI, model [id number], 52 cm, which had serial number [id number]. Pulse analyzer data for the right atrial lead showed capture threshold of 1.8 volts and 0.4 ms with P wave amplitude of 4.5 mV and lead impedance of 510 ohms. The right ventricle lead implant was a [employer] Tendril MRI, model [id number], 52 cm, which had a serial number [id number]. Final testing in the operating room for the right ventricle lead with the pulse analyzer showed capture threshold of 0.9 volts at 0.4 ms with R wave amplitude of 7.1 mV and lead impedance of 627 ohms.
[2019-07-22 07:45] VITALS: BP 124/65
[2019-07-22] MEDS ORDERED: SLF 3 ML SYR IV PRN (07:45)
--- NOTE | 2019-07-22 08:26 | REP ---
Portable chest x-ray: Single view. History: Postop. Comparison chest x-ray: July 21, 2019 Findings: A bipolar pacing maker is seen in place in the right heart via the left side. There is no evidence of pneumothorax. Right hemidiaphragm remains somewhat elevated with plate-like atelectasis above it. There is linear discoid atelectasis in the left base on today's radiograph. There is a radiolucency over the left heart border in the region of the left atrial appendage raising question of pneumomediastinum. Heart size is unchanged. Impression: Question pneumomediastinum. Follow up chest x-ray. Discoid atelectasis in both bases. Transvenous pacemaker via the left side. No evidence of pneumothorax. Electronically Signed by Fernandez Gallagher MD 07/22/2019 08:17 A
[2019-07-22 08:30] VITALS: BP 124/65
--- NOTE | 2019-07-22 08:40 | REP ---
Chest series: Six views. History: Intraprocedural imaging, complete heart block. 5 minutes 12 seconds of fluoroscopy time is reported. Findings: A sequence of six last image hold fluoroscopically obtained spot radiographs of the chest document pacemaker lead position. Electronically Signed by Fernandez Gallagher MD 07/22/2019 12:51 P
[2019-07-22] MEDS ORDERED: LOSARTAN 50 MG TAB PO SCH (09:00)
--- NOTE | 2019-07-22 11:06 | REP ---
Chest x-ray: Two views. History: Post pacemaker. Comparison chest x-ray: July 22, 2019. Findings: A bipolar pacemaker is seen in the right heart via the left side. There is no evidence of pneumothorax or pneumomediastinum. Pleural angles are sharp. There is plate-like atelectasis in the left base. Degenerative changes are noted in the thoracic spine. The aorta somewhat tortuous. Impression: Pacemaker in place. No evidence of pneumothorax or pneumomediastinum. Electronically Signed by Fernandez Gallagher MD 07/22/2019 10:58 A
[2019-07-22 11:45] VITALS: BP 121/67
[2019-07-22] MEDS ORDERED: SLF 3 ML SYR IV SCH (14:00)
[2019-07-22] MEDS ORDERED: ACET1TAB55 PO (14:16)
[2019-07-22] MEDS ORDERED: COZA50TA PO (14:16)
[2019-07-22] MEDS ORDERED: PREVNAR 13 VACCINE SYRINGE (CPT CODE:90670) IM ONE (15:15)
--- NOTE | 2019-07-22 15:51 | DSES ---
DATE OF ADMISSION: 07/21/2019 DATE OF DISCHARGE: FINAL DIAGNOSES: 1. Complete heart block. 2. Right bundle branch block (complete), intermittent. 3. Left bundle branch block (complete), intermittent. 4. Syncope secondary to complete heart block. 5. Systemic hypertension. 6. Overweight. CLINICAL SUMMARY/COURSE IN THE HOSPITAL: Mr. Shaheen Roberts is a generally healthy 78-year-old man with systemic hypertension and previously documented left bundle branch block, who has had prior episodes of syncope. On the day of admission he had an episode of syncope and on arrival to the emergency room was found to be in complete heart block with right bundle branch block configuration with a heart rate in the 20s. The patient also has systemic hypertension and overweight status. The patient was taken to the operating room the evening of 07/21/2019 for implantation of a permanent dual chamber pacemaker ([employer]), which was performed by Dr. Fu and was uncomplicated (see separate operative report). On postoperative day 1, the patient's vital signs were stable and he had no complaints. The pacemaker incision was well approximated by michael and was without drainage and without swelling. The pacemaker was interrogated by Dr. Fu on postoperative day 1 and was found to be satisfactory. Appropriate reprogramming changes were made (separate report). Blood pressure was controlled. In the hospital, he was on losartan 50 mg twice a day. OPERATIONS: 1. Implantation of [employer] dual chamber pacemaker on 07/21/2019. With regards to overweight status, he was placed on a DASH diet. DISCHARGE MEDICATIONS: - Tylenol 325 mg every 4 hours as needed for pain or fever - losartan 50 mg by mouth twice a day FOLLOWUP: The patient is to be seen at my office in approximately 1 week for pacemaker incision check and removal of michael. He will also be scheduled for a pacemaker check in 1 month. He will otherwise keep his appointments at our office as already scheduled, as well as with his primary care provider. Total time for discharge of this patient was 25 minutes, including preparation of this discharge summary, as well as writing discharge orders, examining and talking to the patient.
--- NOTE | 2019-07-23 12:19 | ECGEPIP ---
[facility] Test Date: 2019-07-21 Pat Name: DAYNE JACKSON Department: Room: [place] [address] Gender: Male Tailer Off: WILLIAN : 1940 Requested By: Rj Fu Order Number: [id number] Reading MD: Dagmar Beltre Measurements Intervals [place] Rate: 27 P: [place]: 0 QRS: 38 QRSD: 134 T: 20 QT: 542 QTc: 364 Interpretive Statements COMPLETE HEART BLOCK SINUS TACHY WITH ESCAPE RHYTHM SLOW SUBJUCTIONAL RHYTHM WITH IRBBB PATTERN PRIOR WITH LBBB Electronically Signed on 07-23-2019 12:19:26 EST by Dagmar Beltre
== END 2019-07-22 16:00 | disposition home or self-care (01) | DRG 244 ==
LOC: M ED 16:33 → EDBD 16:33 → M ED INP 18:06 → M ICU 07-22 00:53
PROVIDERS: ADMIT Internal Medicine Cardiovascular Disease; ATTEND Internal Medicine Cardiovascular Disease
PROC: 02HK3JZ Insertion of Pacemaker Lead into Right Ventricle, Percutaneous Approach (ICD-10-PCS; 2019-07-21)
PROC: 02H63JZ Insertion of Pacemaker Lead into Right Atrium, Percutaneous Approach (ICD-10-PCS; 2019-07-21)
PROC: 0JH606Z Insertion of Pacemaker, Dual Chamber into Chest Subcutaneous Tissue and Fascia, Open Approach (ICD-10-PCS; principal; 2019-07-21 21:30)
DX: I44.2 Atrioventricular block, complete (principal); I45.2 Bifascicular block; I45.10 Unspecified right bundle-branch block; R55 Syncope and collapse; I10 Essential (primary) hypertension; Z79.899 Other long term (current) drug therapy; Z87.891 Personal history of nicotine dependence

== ENCOUNTER → 2020-05-02 | Outpatient (REF) | payer MEDICARE, BC, OTHER ==
[~2020-05-02] MED LIST changes: +ACET1TAB55 PO; +COZA50TA PO; +LOSA50TA88 PO
== END ==
LOC: M LAB REF 12:10
PROVIDERS: ATTEND Dermatology
DX: D23.39 Other benign neoplasm of skin of other parts of face (principal)

== ENCOUNTER → 2020-08-30 | Outpatient (REF) | payer MEDICARE, OTHER | LOC: M SMT 16:53 | PROVIDERS: ATTEND Nurse Practitioner Family | DX: N39.0 Urinary tract infection, site not specified (principal) ==

== ENCOUNTER → 2020-09-15 | Outpatient (REF) | payer MEDICARE, OTHER | LOC: M LAB REF 16:04 | PROVIDERS: ATTEND Physician Assistant | DX: R10.84 Generalized abdominal pain (principal) ==

== ENCOUNTER 2022-02-27 09:41 | Emergency (ER) | payer MEDICARE, BC, OTHER ==
[~2022-02-27] VITALS: Ht 175.3 cm; Wt 87.6 kg
[~2022-02-27 09:41] MED LIST changes: +GABA-282 PO; -GABA-843 PO; +LOSA50TA28 PO; -LOSA50TA88 PO
[2022-02-27] MEDS ORDERED: OLME1TAB51 (09:50)
[2022-02-27] MEDS ORDERED: LIDO5DIS41 TD (13:18)
[2022-02-27] MEDS ORDERED: METH-1164 PO (13:18)
[2022-02-27 13:31] VITALS: BP 167/72
== END 2022-02-27 13:33 | disposition home or self-care (01) ==
LOC: M ED 09:41
DX: M51.37 Other intervertebral disc degeneration, lumbosacral region (principal); M54.32 Sciatica, left side; S39.012A Strain of muscle, fascia and tendon of lower back, initial encounter; X50.9XXA Other and unspecified overexertion or strenuous movements or postures, initial encounter; Y92.018 Other place in single-family (private) house as the place of occurrence of the external cause; I10 Essential (primary) hypertension; N18.9 Chronic kidney disease, unspecified; I44.7 Left bundle-branch block, unspecified; I45.10 Unspecified right bundle-branch block; Z79.899 Other long term (current) drug therapy; Z88.1 Allergy status to other antibiotic agents

== ENCOUNTER → 2023-02-12 | Outpatient (REF) | payer MEDICARE, BC, OTHER ==
[~2023-02-12] MED LIST changes: -BENI1TAB3 PO; -COZA50TA PO; +LIDO5DIS41 TD; +LOSA-528 PO; +METH-1164 PO; +OLME1TAB51; +OLME20TA55 PO
[2023-02-12 18:30] LABS: APPEARANCE, URINE CLOUDY (CLEAR); BACTERIA, URINE AUTO NEGATIVE (NEGATIVE); BILIRUBIN, URINE AUTO NEGATIVE (NEGATIVE); BLOOD, URINE BLOOD NEGATIVE (NEGATIVE); COLOR, URINE AMBER (YELLOW); GLUCOSE, URINE (UA) AUTO NEGATIVE (NEGATIVE); KETONE, URINE AUTO NEGATIVE (NEGATIVE); LEUKOCYTE ESTERASE, URINE AUTO NEGATIVE (NEGATIVE); MUCUS, URINE SMALL (NEGATIVE); NITRITE, URINE AUTO NEGATIVE (NEGATIVE); PROTEIN, URINE AUTO NEGATIVE (NEGATIVE); RBC, URINE AUTO 0 /HPF (0-3); SPECIFIC GRAVITY URINE AUTO 1.024 (1.002-1.035); SQUAMOUS EPITHELIAL CELL UR AU 0 /HPF (0-6); UROBILINOGEN, URINE AUTO 0.2 mg/dL (0.0-2.0); WBC, URINE AUTO 1 /HPF (0-3)
== END ==
LOC: M LAB REF 17:13
PROVIDERS: ATTEND Nurse Practitioner Family
DX: Z00.00 Encounter for general adult medical examination without abnormal findings (principal); N18.30 Chronic kidney disease, stage 3 unspecified; N40.1 Benign prostatic hyperplasia with lower urinary tract symptoms

== ENCOUNTER 2023-10-12 14:16 | Inpatient (IN) | payer MEDICARE, BC, OTHER ==
[~2023-10-12] VITALS: Ht 175.3 cm; Wt 93.5 kg
[~2023-10-12 14:16] MED LIST changes: -OLME1TAB51; +OLME1TAB51 PO
[2023-10-12] MEDS ORDERED: ISOVUE-370 76% 100ML VIAL As Ordered ONE (15:06)
[2023-10-12 15:08] LABS: BASO # 0.1 10^3/uL (0.0-0.2); BASO % 0.7 % (0.0-1.0); EOS # 0.3 10^3/uL (0.0-0.5); EOS % 3.1 % (0.0-3.0); HEMOGLOBIN 14.9 g/dl (13.5-17.5); LYMPH # 1.7 10^3/uL (1.5-5.0); LYMPH % 20.5 % (24.0-44.0); MEAN CORPUSCULAR HEMOGLOBIN 30.2 pg (27.0-33.0); MEAN CORPUSCULAR HGB CONC 33.1 g/dl (32.0-36.5); MEAN CORPUSCULAR VOLUME 91.3 fl (80.0-96.0); MONO # 0.7 10^3/uL (0.0-0.8); MONO % 8.1 % (2.0-8.0); NEUTROPHILS # 5.7 10^3/uL (1.5-8.5); NEUTROPHILS % 67.4 % (36.0-66.0); PLATELET COUNT, AUTOMATED 200 10^3/uL (150-450); RED BLOOD COUNT 4.93 10^6/uL (4.30-6.10); WHITE BLOOD COUNT 8.4 10^3/uL (4.0-10.0)
[2023-10-12 15:29] LABS: BLOOD UREA NITROGEN 32 MG/DL (9-23); CALCIUM LEVEL 9.1 MG/DL (8.3-10.6); CARBON DIOXIDE LEVEL 30 MMOL/L (20-31); CHLORIDE LEVEL 106 MMOL/L (98-107); CK-MB VALUE MASS < 1.0 NG/ML (<3.6); CREATININE FOR GFR 1.24 MG/DL (0.70-1.30); GLOMERULAR FILTRATION RATE 59.6 (>35); GLUCOSE, FASTING 94 MG/DL (74-106); POTASSIUM SERUM 4.6 MMOL/L (3.5-5.1); SODIUM LEVEL 141 MMOL/L (136-145)
[2023-10-12 15:31] LABS: FREE T4 1.08 NG/DL (0.89-1.76); THYROID STIMULATING HORMONE 1.156 uIU/ML (0.55-4.78)
[2023-10-12 15:35] LABS: CPK CREATINE PHOSPHOKINASE 62 U/L (46-171); MB/CK RELATIVE INDEX 1.61 (< OR =4)
[2023-10-12 15:38] LABS: RSV AMPLIFICATION NEGATIVE (NEGATIVE)
[2023-10-12 16:30] LABS: CK-MB VALUE MASS < 1.0 NG/ML (<3.6)
[2023-10-12 16:32] LABS: CPK CREATINE PHOSPHOKINASE 43 U/L (46-171); MB/CK RELATIVE INDEX 2.32 (< OR =4)
[2023-10-12] MEDS ORDERED: cloNIDine 0.1MG TABLET PO ONE (17:45)
[2023-10-12] MEDS ORDERED: EQL50TAB2 PO (17:58)
[2023-10-12] MEDS ORDERED: CHOL10007 PO (17:58)
[2023-10-12] MEDS ORDERED: ASCO500T PO (17:58)
[2023-10-12] MEDS ORDERED: ENOXAPARIN 40MG/0.4ML SYRINGE (J1650 PER 10MG) SC ONE (18:00)
[2023-10-12] MEDS ORDERED: HOME MED LIST COMPLETE! XX SCH (18:00)
[2023-10-12] MEDS ORDERED: ASPIRIN 81MG CHEW TABLET PO ONE (18:00)
[2023-10-12] MEDS ORDERED: NS 1,000 ML IV ONE ×3 (19:00→19:15)
[2023-10-12] MEDS ORDERED: MIDODRINE 5 MG TAB PO ONE (19:00)
[2023-10-12] MEDS ORDERED: CARVedilol 6.25 MG TAB PO SCH (21:00)
[2023-10-12] MEDS ORDERED: atenoloL 25 MG TAB PO SCH (21:00)
[2023-10-12] MEDS: NS 1,000 ML IV SCH (21:05)
[2023-10-12 22:16] VITALS: BP 152/65; TEMP 98.3; O2SAT 96
[2023-10-13] VITALS (10 sets, daily range): BP systolic 96–137; BP diastolic 50–78; TEMP 97.7–98.5; O2SAT 94–98
[2023-10-13 04:53] LABS: BASO # 0.1 10^3/uL (0.0-0.2); BASO % 0.7 % (0.0-1.0); EOS # 0.4 10^3/uL (0.0-0.5); EOS % 5.2 % (0.0-3.0); LYMPH % 28.3 % (24.0-44.0); MEAN CORPUSCULAR HEMOGLOBIN 30.3 pg (27.0-33.0); MEAN CORPUSCULAR HGB CONC 33.7 g/dl (32.0-36.5); MONO # 0.6 10^3/uL (0.0-0.8); MONO % 8.6 % (2.0-8.0); NEUTROPHILS # 4.1 10^3/uL (1.5-8.5); NEUTROPHILS % 57.1 % (36.0-66.0); PLATELET COUNT, AUTOMATED 173 10^3/uL (150-450); RED BLOOD COUNT 4.22 10^6/uL (4.30-6.10); WHITE BLOOD COUNT 7.2 10^3/uL (4.0-10.0)
[2023-10-13 04:56] LABS: HEMOGLOBIN 12.8 g/dl (13.5-17.5)
[2023-10-13 05:04] LABS: HEMOGLOBIN A1c 5.4 % (4.0-6.0)
[2023-10-13 05:21] LABS: BLOOD UREA NITROGEN 27 MG/DL (9-23); CALCIUM LEVEL 7.9 MG/DL (8.3-10.6); CARBON DIOXIDE LEVEL 25 MMOL/L (20-31); CHLORIDE LEVEL 114 MMOL/L (98-107); CHOLESTEROL LEVEL 139 MG/DL (<200); CHOLESTEROL RISK RATIO 3.64 (<5); CREATININE FOR GFR 1.21 MG/DL (0.70-1.30); GLOMERULAR FILTRATION RATE > 60.0 (>35); GLUCOSE, FASTING 95 MG/DL (74-106); HDL CHOLESTEROL 38.1 MG/DL (>40); LDL CHOLESTEROL 84.3 MG/DL (<100); NON-HDL-C 100.9 MG/DL; POTASSIUM SERUM 4.2 MMOL/L (3.5-5.1); SODIUM LEVEL 144 MMOL/L (136-145); TRIGLYCERIDES LEVEL 83 MG/DL (<150)
[2023-10-13] MEDS: NS 1,000 ML IV SCH (06:14)
[2023-10-13] MEDS ORDERED: MIDODRINE 5 MG TAB PO SCH (08:00)
[2023-10-13] MEDS: ENOXAPARIN 40MG/0.4ML SYRINGE (J1650 PER 10MG) SC SCH (08:18)
[2023-10-13] MEDS: ASPIRIN 81MG CHEW TABLET PO SCH (08:18)
[2023-10-13] MEDS ORDERED: NS 1,000 ML IV ONE ×2 (08:30→10:25)
[2023-10-13 08:37] LABS: C REACTIVE PROTEIN QUANTITATIV < 0.40 MG/DL (<1.0)
[2023-10-13 08:45] LABS: ERYTHROCYTE SEDIMENTATION RATE 6 mm/hr (0-20)
[2023-10-13 08:46] LABS: PROCALCITONIN <0.04 ng/ml
[2023-10-13] MEDS ORDERED: OLMESARTAN MEDOXOMIL 20 MG TAB (BENICAR) PO SCH (09:00)
[2023-10-13] MEDS ORDERED: NS 1,000 ML IV SCH (11:30)
[2023-10-13] MEDS ORDERED: NS 0.45% 1,000 ML IV ONE (13:05)
[2023-10-13] MEDS: NS 0.45% 1,000 ML IV SCH (13:05)
[2023-10-13] MEDS: MECLIZINE 25 MG TABLET PO SCH ×3 (13:11→23:40)
[2023-10-13] MEDS ORDERED: SIMVASTATIN 40 MG TAB PO ONE (14:00)
[2023-10-14 01:11] VITALS: BP 104/58; TEMP 97.7; O2SAT 95
[2023-10-14] MEDS: NS 0.45% 1,000 ML IV SCH (02:25)
[2023-10-14 05:35] VITALS: BP 131/67; TEMP 97.9; O2SAT 97
[2023-10-14] MEDS: MECLIZINE 25 MG TABLET PO SCH ×3 (05:44→18:26)
[2023-10-14 05:58] LABS: BASO % 0.7 % (0.0-1.0); EOS # 0.6 10^3/uL (0.0-0.5); EOS % 9.1 % (0.0-3.0); HEMATOCRIT 37.8 % (42.0-52.0); HEMOGLOBIN 12.4 g/dl (13.5-17.5); LYMPH # 1.7 10^3/uL (1.5-5.0); LYMPH % 28.4 % (24.0-44.0); MEAN CORPUSCULAR HGB CONC 32.8 g/dl (32.0-36.5); MEAN CORPUSCULAR VOLUME 91.5 fl (80.0-96.0); MONO # 0.6 10^3/uL (0.0-0.8); MONO % 9.8 % (2.0-8.0); NEUTROPHILS # 3.2 10^3/uL (1.5-8.5); NEUTROPHILS % 51.8 % (36.0-66.0); PLATELET COUNT, AUTOMATED 145 10^3/uL (150-450); RED BLOOD COUNT 4.13 10^6/uL (4.30-6.10); WHITE BLOOD COUNT 6.1 10^3/uL (4.0-10.0)
[2023-10-14 06:17] LABS: CALCIUM LEVEL 7.9 MG/DL (8.3-10.6); CREATININE FOR GFR 1.27 MG/DL (0.70-1.30); GLOMERULAR FILTRATION RATE 57.9 (>35); POTASSIUM SERUM 4.1 MMOL/L (3.5-5.1)
[2023-10-14] MEDS ORDERED: ASPI81CH8 PO (08:00)
[2023-10-14] MEDS ORDERED: MECL-86 PO (08:00)
[2023-10-14] MEDS: ASPIRIN 81MG CHEW TABLET PO SCH (08:03)
[2023-10-14] MEDS: ENOXAPARIN 40MG/0.4ML SYRINGE (J1650 PER 10MG) SC SCH (08:04)
[2023-10-14 08:23] VITALS: BP_SYST 124; BP_SYST 134; BP_SYST 140; BP_DIAS 61; BP_DIAS 69
[2023-10-14] MEDS ORDERED: SELF1KIT MC (09:15)
[2023-10-14] MEDS ORDERED: NORV2TAB PO (09:15)
[2023-10-14 09:19] LABS: CORTISOL AM 10.9 UG/DL (4.3-22.4); CORTISOL BASELINE 10.9 UG/DL (4.3-22.4)
[2023-10-14 09:30] LABS: PROCALCITONIN <0.04 ng/ml
[2023-10-14 10:00] VITALS: BP 116/58; TEMP 97.9; O2SAT 95
[2023-10-14] MEDS ORDERED: COSYNTROPIN 0.25 MG/ML 1ML VIAL IV ONE (10:00)
[2023-10-14 14:00] VITALS: BP 131/65; TEMP 97.9; O2SAT 95
[2023-10-14] MEDS ORDERED: SIMVASTATIN 40 MG TAB PO SCH (21:00)
== END 2023-10-14 19:07 | disposition home or self-care (01) | DRG 305 ==
LOC: M ED 14:16 → M ED INP 16:58 → ENRESERV 18:45 → M PCU 22:11 → OBSVTOIN 10-13 08:26 → M MSPAV 10-13 16:56
PROVIDERS: ADMIT General Practice; ATTEND General Practice
DX: I16.0 Hypertensive urgency (principal); I45.2 Bifascicular block; N18.30 Chronic kidney disease, stage 3 unspecified; Z95.0 Presence of cardiac pacemaker; N40.0 Benign prostatic hyperplasia without lower urinary tract symptoms; Z87.891 Personal history of nicotine dependence; I12.9 Hypertensive chronic kidney disease with stage 1 through stage 4 chronic kidney disease, or unspecified chronic kidney disease; Z86.73 Personal history of transient ischemic attack (TIA), and cerebral infarction without residual deficits; Z79.899 Other long term (current) drug therapy; Z88.8 Allergy status to other drugs, medicaments and biological substances; I95.2 Hypotension due to drugs

== ENCOUNTER 2023-12-05 12:00 | Observation (INO) | payer MEDICARE, BC, OTHER ==
[~2023-12-05] VITALS: Ht 172.7 cm; Wt 89.1 kg
[~2023-12-05 12:00] MED LIST changes: +ASCO500T PO; +ASPI81CH8 PO; +CHOL10007 PO; +EQL50TAB2 PO; +MECL-86 PO; +NORV2TAB PO; +SELF1KIT MC
[2023-12-05 13:14] LABS: BASO # 0.1 10^3/uL (0.0-0.2); BASO % 0.3 % (0.0-1.0); EOS % 0.1 % (0.0-3.0); HEMOGLOBIN 14.1 g/dl (13.5-17.5); LYMPH # 1.3 10^3/uL (1.5-5.0); LYMPH % 7.1 % (24.0-44.0); MEAN CORPUSCULAR HEMOGLOBIN 30.1 pg (27.0-33.0); MEAN CORPUSCULAR HGB CONC 33.6 g/dl (32.0-36.5); MEAN CORPUSCULAR VOLUME 89.7 fl (80.0-96.0); MONO # 1.6 10^3/uL (0.0-0.8); MONO % 8.5 % (2.0-8.0); NEUTROPHILS # 15.4 10^3/uL (1.5-8.5); NEUTROPHILS % 83.4 % (36.0-66.0); PLATELET COUNT, AUTOMATED 187 10^3/uL (150-450); RED BLOOD COUNT 4.68 10^6/uL (4.30-6.10); WHITE BLOOD COUNT 18.5 10^3/uL (4.0-10.0)
[2023-12-05] MEDS ORDERED: ASPI81CH48 PO (13:15)
[2023-12-05] MEDS ORDERED: AMLO1TAB24 PO (13:15)
[2023-12-05] MEDS: ACETAMINOPHEN TAB 650MG DOSE (2X325MG) PO ONE (13:37)
[2023-12-05] MEDS: NS 1,000 ML IV ONE ×3 (13:37→16:35)
[2023-12-05 13:39] LABS: ALBUMIN 3.5 G/DL (3.2-5.2); BILIRUBIN,DIRECT 0.4 MG/DL (<0.4); CALCIUM LEVEL 8.8 MG/DL (8.3-10.6); CREATININE FOR GFR 1.63 MG/DL (0.70-1.30); GLOMERULAR FILTRATION RATE 43.4 (>35); POTASSIUM SERUM 3.9 MMOL/L (3.5-5.1); TOTAL PROTEIN 6.6 G/DL (5.7-8.2)
[2023-12-05 13:41] LABS: THYROID STIMULATING HORMONE 0.479 uIU/ML (0.55-4.78); THYROXINE (T4) 5.9 UG/DL (4.5-10.9)
[2023-12-05 14:06] LABS: C REACTIVE PROTEIN QUANTITATIV 18.7 MG/DL (<1.0)
[2023-12-05] MEDS ORDERED: THERTAB52 PO (14:11)
[2023-12-05 14:14] LABS: PROCALCITONIN 0.2 ng/ml
[2023-12-05] MEDS ORDERED: HOME MED LIST COMPLETE! XX SCH (14:15)
[2023-12-05] MEDS: cefTRIAXone SOD 1 GM in D5W MINI-BAG PLUS 50 ML IV ONE (14:52)
[2023-12-05] MEDS ORDERED: MAALOX 30 ML SUSP *UDC PO PRN (16:50)
[2023-12-05] MEDS ORDERED: ACETAMINOPHEN TAB 650MG DOSE (2X325MG) PO PRN (16:50)
[2023-12-05] MEDS: HEPARIN SOD (PORCINE) 5000UNITS/ML 1ML VIAL/SYRINGE SC SCH (21:51)
[2023-12-05 23:08] VITALS: BP 127/61; TEMP 98.8; O2SAT 96
[2023-12-06 03:02] VITALS: BP 117/64; TEMP 100.1; O2SAT 82; O2SAT 92
[2023-12-06 03:48] VITALS: BP 119/60; TEMP 99.6; O2SAT 93
[2023-12-06 07:27] LABS: BASO # 0.1 10^3/uL (0.0-0.2); BASO % 0.4 % (0.0-1.0); EOS # 0.2 10^3/uL (0.0-0.5); EOS % 1.5 % (0.0-3.0); HEMATOCRIT 37.2 % (42.0-52.0); HEMOGLOBIN 12.3 g/dl (13.5-17.5); LYMPH # 1.8 10^3/uL (1.5-5.0); LYMPH % 14.2 % (24.0-44.0); MEAN CORPUSCULAR HEMOGLOBIN 29.9 pg (27.0-33.0); MEAN CORPUSCULAR HGB CONC 33.1 g/dl (32.0-36.5); MEAN CORPUSCULAR VOLUME 90.3 fl (80.0-96.0); MONO # 1.1 10^3/uL (0.0-0.8); MONO % 8.7 % (2.0-8.0); NEUTROPHILS # 9.3 10^3/uL (1.5-8.5); NEUTROPHILS % 74.7 % (36.0-66.0); PLATELET COUNT, AUTOMATED 161 10^3/uL (150-450); RED BLOOD COUNT 4.12 10^6/uL (4.30-6.10); WHITE BLOOD COUNT 12.4 10^3/uL (4.0-10.0)
[2023-12-06 07:47] VITALS: BP 112/55; TEMP 98.6; O2SAT 90
[2023-12-06 07:48] LABS: CALCIUM LEVEL 7.7 MG/DL (8.3-10.6); CREATININE FOR GFR 1.26 MG/DL (0.70-1.30); GLOMERULAR FILTRATION RATE 58.5 (>35); MAGNESIUM LEVEL 1.8 MG/DL (1.8-2.4); POTASSIUM SERUM 3.9 MMOL/L (3.5-5.1)
[2023-12-06] MEDS: MOM 30ML SUSPENSION UDC PO PRN (09:01)
[2023-12-06] MEDS: cefTRIAXone SOD 1 GM in D5W MINI-BAG PLUS 50 ML IV SCH (09:01)
[2023-12-06] MEDS: SENOKOT S TAB PO SCH (11:17)
[2023-12-06 12:12] VITALS: BP 116/58; TEMP 98.3; O2SAT 95
[2023-12-06 16:16] VITALS: BP 123/59; TEMP 98.9; O2SAT 96
[2023-12-06] MEDS ORDERED: CEFD1CAP9 PO (16:34)
== END 2023-12-06 18:17 | disposition home or self-care (01) ==
LOC: M ED 12:00 → INTOOBSV 16:49 → M ED INP 16:49 → ENRESERV 22:21 → M PCU 23:00
PROVIDERS: ADMIT Student in an Organized Health Care Education/Training Program; ATTEND Student in an Organized Health Care Education/Training Program
DX: N39.0 Urinary tract infection, site not specified (principal); A41.9 Sepsis, unspecified organism; N17.9 Acute kidney failure, unspecified; Z79.82 Long term (current) use of aspirin; Z95.0 Presence of cardiac pacemaker; Z88.1 Allergy status to other antibiotic agents; Z79.899 Other long term (current) drug therapy; R53.1 Weakness; Z87.891 Personal history of nicotine dependence
CPT/HCPCS: 36415; 71046; 80048; 80076; 81001; 83605; 83735; 83880; 84145; 84436; 84443; 85025; 86140; 87040; 87086; 87486; 87581; 87633; 87798; 93005; 96365; 96366; 96372; 96375; 96376; 97161; 99285; G0378; J0696

== ENCOUNTER → 2023-12-19 | Outpatient (REF) | payer MEDICARE, BC ==
[~2023-12-19] MED LIST changes: +AMLO1TAB24 PO; +ASPI81CH48 PO; +CEFD1CAP9 PO; +THERTAB52 PO
[2023-12-19 18:15] LABS: APPEARANCE, URINE HAZY (CLEAR); BACTERIA, URINE AUTO NEGATIVE (NEGATIVE); BILIRUBIN, URINE AUTO NEGATIVE (NEGATIVE); BLOOD, URINE BLOOD NEGATIVE (NEGATIVE); COLOR, URINE YELLOW (YELLOW); GLUCOSE, URINE (UA) AUTO NEGATIVE (NEGATIVE); KETONE, URINE AUTO TRACE mg/dL (NEGATIVE); LEUKOCYTE ESTERASE, URINE AUTO NEGATIVE (NEGATIVE); MUCUS, URINE SMALL (NEGATIVE); NITRITE, URINE AUTO NEGATIVE (NEGATIVE); PROTEIN, URINE AUTO NEGATIVE (NEGATIVE); RBC, URINE AUTO 0 /HPF (0-3); SPECIFIC GRAVITY URINE AUTO 1.026 (1.002-1.035); SQUAMOUS EPITHELIAL CELL UR AU 0 /HPF (0-6); UROBILINOGEN, URINE AUTO 0.2 mg/dL (0.0-2.0); WBC, URINE AUTO 1 /HPF (0-3)
== END ==
LOC: M LABSMT 15:40
PROVIDERS: ATTEND Urology
DX: N40.0 Benign prostatic hyperplasia without lower urinary tract symptoms (principal)

== ENCOUNTER → 2024-04-02 | Outpatient (CLI) | payer MEDICARE, BC ==
[~2024-04-02] MED LIST changes: -OLME1TAB51 PO; +OLME1TAB92 PO
== END ==
LOC: M PLAIMG 13:05
PROVIDERS: ATTEND Nurse Practitioner Family
DX: R05.9 Cough, unspecified (principal); R68.83 Chills (without fever)

== ENCOUNTER → 2024-12-09 | Outpatient (CLI) | payer MEDICARE, BC ==
[~2024-12-09] MED LIST changes: +GABA-1172 PO; -GABA-282 PO; +ISOVUE-370 76% 100ML VIAL As Ordered ONE
[2024-12-09 13:47] LABS: BASO # 0.1 10^3/uL (0.0-0.2); BASO % 1.1 % (0.0-1.0); EOS # 0.3 10^3/uL (0.0-0.5); EOS % 4.6 % (0.0-3.0); HEMATOCRIT 43.7 % (42.0-52.0); HEMOGLOBIN 14.4 g/dl (13.5-17.5); LYMPH % 27.2 % (24.0-44.0); MEAN CORPUSCULAR HEMOGLOBIN 29.9 pg (27.0-33.0); MEAN CORPUSCULAR VOLUME 90.7 fl (80.0-96.0); MONO # 0.6 10^3/uL (0.0-0.8); MONO % 8.2 % (2.0-8.0); NEUTROPHILS # 4.4 10^3/uL (1.5-8.5); NEUTROPHILS % 58.5 % (36.0-66.0); PLATELET COUNT, AUTOMATED 204 10^3/uL (150-450); RED BLOOD COUNT 4.82 10^6/uL (4.30-6.10); WHITE BLOOD COUNT 7.5 10^3/uL (4.0-10.0)
[2024-12-09 14:10] LABS: ALBUMIN 3.8 G/DL (3.2-5.2); BILIRUBIN,TOTAL 0.4 MG/DL (0.3-1.2); CALCIUM LEVEL 9.5 MG/DL (8.3-10.6); CREATININE FOR GFR 1.29 MG/DL (0.70-1.30); GLOMERULAR FILTRATION RATE 56.8 (>35); POTASSIUM SERUM 4.6 MMOL/L (3.5-5.1); TOTAL PROTEIN 7.1 G/DL (5.7-8.2)
== END ==
LOC: M RAD 12:53
PROVIDERS: ATTEND Nurse Practitioner Family
DX: Z01.812 Encounter for preprocedural laboratory examination (principal); R10.31 Right lower quadrant pain; K57.30 Diverticulosis of large intestine without perforation or abscess without bleeding; I70.0 Atherosclerosis of aorta; K42.9 Umbilical hernia without obstruction or gangrene; K40.20 Bilateral inguinal hernia, without obstruction or gangrene, not specified as recurrent
CPT/HCPCS: 36415; 74177; 80053; 85025; 87086; Q9967

== ENCOUNTER → 2024-12-25 | Outpatient (CLI) | payer MEDICARE, BC ==
[~2024-12-25] MED LIST changes: -ISOVUE-370 76% 100ML VIAL As Ordered ONE
== END ==
LOC: M PLAIMG 14:47
PROVIDERS: ATTEND Internal Medicine Cardiovascular Disease
DX: I27.20 Pulmonary hypertension, unspecified (principal); I50.30 Unspecified diastolic (congestive) heart failure

== ENCOUNTER → 2025-04-12 | Outpatient (REF) | payer MEDICARE, BC ==
[~2025-04-12] MED LIST changes: -EQL50TAB2 PO; -FLOM0.4C39 PO; +HYDR12.510 PO; -HYDR12CA PO; +LIDO1ADH93 TD; -LIDO5DIS41 TD; +TAMS-18 PO; +VITA1TAB82 PO
== END ==
LOC: M LAB REF 16:52
PROVIDERS: ATTEND Nurse Practitioner Family
DX: Z13.9 Encounter for screening, unspecified (principal); R53.83 Other fatigue

== ENCOUNTER → 2025-04-22 | Outpatient (REF) | payer MEDICARE, BC | LOC: M LAB REF 16:53 | PROVIDERS: ATTEND Registered Nurse | DX: R35.0 Frequency of micturition (principal) ==

== ENCOUNTER 2025-05-16 19:59 | Emergency (ER) | payer MEDICARE, BC ==
[~2025-05-16] VITALS: Ht 175.3 cm; Wt 85.3 kg
[2025-05-16 21:49] LABS: BASO # 0.1 10^3/uL (0.0-0.2); BASO % 0.5 % (0.0-1.0); EOS # 0.2 10^3/uL (0.0-0.5); EOS % 2.4 % (0.0-3.0); LYMPH # 1.2 10^3/uL (1.5-5.0); LYMPH % 11.8 % (24.0-44.0); MONO # 0.7 10^3/uL (0.0-0.8); MONO % 7.1 % (2.0-8.0); NEUTROPHILS # 7.8 10^3/uL (1.5-8.5); NEUTROPHILS % 77.8 % (36.0-66.0); PLATELET COUNT, AUTOMATED 222 10^3/uL (150-450)
[2025-05-16 22:22] LABS: ALT/SGPT 18.0 U/L (7.0-40); AST/SGOT 17.0 U/L (<34); CALCIUM LEVEL 9.6 MG/DL (8.3-10.6); CARBON DIOXIDE LEVEL 28.0 MMOL/L (20-31); CHLORIDE LEVEL 106.0 MMOL/L (98-107); CREATININE FOR GFR 1.51 MG/DL (0.70-1.30); GLOMERULAR FILTRATION RATE 45.5 (>35); POTASSIUM SERUM 4.9 MMOL/L (3.5-5.1); SODIUM LEVEL 144.0 MMOL/L (136-145)
[2025-05-16] MEDS: NS 500 ML IV ONE (22:30)
[2025-05-17] MEDS: FLEET OIL RETENTION ENEMA PR ONE (01:30)
[2025-05-17 01:33] LABS: KETONE, URINE AUTO RFX TRACE mg/dL (NEGATIVE); LEUKOCYTE ESTERASE UR AUTO RFX NEGATIVE (NEGATIVE); NITRITE, URINE AUTO RFX NEGATIVE (NEGATIVE); RBC, URINE AUTO RFX 0 /HPF (0-3); SQUAM EPITHELIAL CELL UR AURFX 0 /HPF (0-6); WBC, URINE AUTO RFX 0 /HPF (0-3)
[2025-05-17] MEDS ORDERED: MIRA3350 PO (01:55)
[2025-05-17] MEDS ORDERED: COLA100C5 PO (01:55)
[2025-05-17] MEDS: MAGNESIUM CITRATE 300 ML BTL PO ONE (02:12)
[2025-05-17 02:22] VITALS: BP 146/65; TEMP 98.4; O2SAT 96
== END 2025-05-17 02:25 | disposition home or self-care (01) ==
LOC: M ED 19:59
DX: K59.00 Constipation, unspecified (principal); I12.9 Hypertensive chronic kidney disease with stage 1 through stage 4 chronic kidney disease, or unspecified chronic kidney disease; Z79.82 Long term (current) use of aspirin; Z79.899 Other long term (current) drug therapy; Z88.1 Allergy status to other antibiotic agents
CPT/HCPCS: 74018; 80048; 80076; 81001; 83690; 85025; 96374; 99284; J2060

== ENCOUNTER → 2025-05-20 | Outpatient (CLI) | payer MEDICARE, BC ==
[~2025-05-20] MED LIST changes: +COLA100C5 PO; +MIRA3350 PO
== END ==
LOC: M PLALAB 12:43
PROVIDERS: ATTEND Nurse Practitioner Family
DX: K59.00 Constipation, unspecified (principal)

== ENCOUNTER → 2025-05-24 | Outpatient (CLI) | payer MEDICARE, BC | LOC: M PLAIMG 15:38 | PROVIDERS: ATTEND Nurse Practitioner Family | DX: K59.00 Constipation, unspecified (principal) ==

== ENCOUNTER → 2025-07-20 | Outpatient (CLI) | payer MEDICARE, BC | LOC: M PLALAB 12:40 → M PLAIMG 12:40 | PROVIDERS: ATTEND Nurse Practitioner Family | DX: K59.00 Constipation, unspecified (principal) ==